=== PATIENT | female | born 1975 | race Caucasian/White ===

== ENCOUNTER 2016-12-02 20:56 | Emergency (ER) | payer MEDICARE, MEDICAID ==
[~2016-12-02 20:56] MED LIST: ADVAIR DIS1 PUFF/DO1 IH; AMBIEN DPS5 MG PO; ASCORBIC ACID500 MG PO; ATARAX-DPS25 MG PO; ATROVENT HFA12.9 G1 IH; AUGMENTIN875 MG PO; BENADRYL-DPS25 MG PO; CLARITIN DPS10 MG PO; CLOTRIMAZOLE-BE45 GM; COMBIVENT RESPIM4 GM IH; CYMBALTA60 MG PO; DESYREL DPS100 MG PO; DITROPAN XL15 MG PO; DULCOLAX-DPS10 MG PR; DULCOLAX-DPS5 MG PO; DURAGESIC DPS100 MCG TP; DURAGESIC50 MCG TD; FLONASE 0.05% D16 GM NS; HABITROL TP; HYDROCODONE 5MG/5 MG PO; IBUPROFEN200 MG PO; IMITREX DPS50 MG PO; IMODIUM DPS2 MG PO; LEVEMIR100 UNIT/1 SQ; LIPITOR DPS10 MG PO; LOVENOX DP40 MG/0.4 SQ; MAALOX DPS30 ML; MAALOX DPS30 ML PO; MESTINON DPS60 MG PO; METAMUCIL PACK3.4 GM PO; MIRALAX DPS17 GM PO; MONISTAT TP; MOVANTIK25 MG PO; MYRBETRIQ25 MG PO; NOVOLOG100 UNIT/2 SQ; PHENERGAN DPS25 MG PO; PRILOSEC40 MG PO; PRINIVIL10 MG PO; PROAIR RESPICL90 MCG IH; REGLAN-DPS10 MG PO; SENOKOT S1 TAB PO; THERA1 EACH PO; TOPIRAMATE100 MG PO; TRESIBA FL200 UNIT/1 SQ; TYLENOL EXTRA500 MG PO; ULTRAM DPS50 MG PO; VALIUM-DPS2 MG PO; ZENPEP DR 20,01 EACH PO; ZESTRIL DPS20 MG PO; ZOFRAN ODT4 MG PO; ZOFRAN4 MG PO; ZYRTEC DPS10 MG PO
--- NOTE | 2016-12-03 06:50 | ER ---
ADMIT: 12/02/2016 RM/LOC: ER [facility] MR#: [id number] [id number] [place], [place] [address] CHRISTOPHER GUZMAN [address] [place] [address] Emergency Room Report SEX: F AGE: 41 : 1975 DATE: 12/02/2016 The patient is a 41-year-old female, with triplegia from work-related accident, complicated by stroke, chronic gastroparesis, neurogenic bladder with indwelling suprapubic catheter, complains of exacerbation of gastroparesis and abdominal pain consistent with her pancreatitis. Exam remarkable for nontoxic, afebrile female, triplegia, minimal use of her left arm. WBC 16.8, CRP 2.24, lactic 1.0, potassium 3.2, lipase 51, BNP 18. UA shows 3+ leukocyte esterase, 28 wbc's, 5 rbc's, cloudy urine. Culture pending. Given Rocephin 1 g IV piggyback, home with Macrobid 100 mg b.i.d. #20, hydrocodone 5/325 mg as needed #20 plus #6 from Pyxis. Follow up with Dr. Garcia next week. Marcin Cota MD/ adi JOB #: [id number] CC: Marcin Cota MD, Attending Physician Karin Garcia, DO Resident, Family Physician Karin Garcia, DO Resident
== END 2016-12-02 23:25 | disposition home or self-care (01) ==
LOC: ER 20:56
DX: N39.0 Urinary tract infection, site not specified (principal); R10.9 Unspecified abdominal pain; I10 Essential (primary) hypertension; E78.5 Hyperlipidemia, unspecified; F17.210 Nicotine dependence, cigarettes, uncomplicated; Z86.73 Personal history of transient ischemic attack (TIA), and cerebral infarction without residual deficits; Z88.8 Allergy status to other drugs, medicaments and biological substances; Z79.4 Long term (current) use of insulin; Z79.899 Other long term (current) drug therapy

== ENCOUNTER 2017-02-11 15:05 | Observation (INO) | payer MEDICARE, MEDICAID ==
[~2017-02-11] VITALS: Ht 175.3 cm; Wt 110.0 kg
--- NOTE | 2017-02-12 16:11 | ER ---
ADMIT: 02/11/2017 RM/LOC: [address] [facility] MR#: [id number] [id number] [place], [place] [address] CHRISTOPHER GUZMAN [address] [place] [address] Emergency Room Report SEX: F AGE: 41 : 1975 DATE: 02/11/2017 ADDENDUM: ADMITTING DIAGNOSES: Insulin-dependent diabetes, nausea, vomiting, triplegia secondary to trauma, Social Service concern, and history of cerebrovascular accident. The patient lives at home essentially by herself. She has caretakers that come in maybe for an 11 hours a day. She usually gets around. Does on herself, but she has been more short of breath. She had a little chest pain, just not feeling well overall. CBC, chemistry, troponin, EKG negative. Chest x-ray is negative. Essentially with her nausea and vomiting, she is unable to keep enough down to control her insulin. I did a hemoglobin A1c, she is relatively controlled at 6.9. She also is narcotic dependent. She is running out of her pain medications, although she still has a fentanyl patch on. We gave her Dilaudid x2 while she was here, difficult to get an IV in her. At this time, I spoke to Dr. Matt, going to admit for observation, this baby more of a Social Service concern, but since she is unable to keep enough or all food and liquids down and control her diabetes and she is essentially paraplegic, then we will need to admit her. CONDITION ON DISCHARGE: Serious, but stable. Seamus Rivas MD/ modl JOB #: [id number] CC: Leia Matt MD, Attending Physician Leia Matt MD, Family Physician
--- NOTE | 2017-02-15 07:30 | HP ---
ADMIT: 02/11/2017 RM/LOC: [address] [facility] MR#: [id number] [address] [place], [place] [address] THOMAS CHRISTOPHERShanel ROBERT [address] [place] [address] History and Physical SEX: F AGE: 41 : 1975 DATE OF SERVICE: CHIEF COMPLAINT: Chest pressure and nausea and vomiting. HISTORY OF PRESENT ILLNESS: This is a 41-year-old lady, who is paraplegic from a work site accident in 2005, which caused lower extremity paralysis. She reports that in 2009 she had a stroke, but that history is not documented in any of our notes. In any case, she said that left her with right arm weakness. Therefore, she has only use of her left arm. In any case, she said that over the last 4 days, she has had cold symptoms and chest pressure from that and then last night at about 2300 hours said her chest pain got worse. She waited through the night and was able to sleep, but said throughout the day today she thought it was getting worse so she came to the ER. She was brought in by [facility]. She lives at home and has nursing help and other help to transport her to doctor's appointments, but called the squad to come to the ER. In the emergency room, she had normal troponin, normal chest x-ray, and her EKG showed sinus rhythm with no acute changes. However, she complains that she hurts and is nauseated and cannot tolerate taking her usual medications. She is admitted on observation status for further evaluation and rule out myocardial infarction. The patient's risk factors include smoking and diabetes apparently type 1. Also, she has morbid obesity, hyperlipidemia, and some family history. The patient tells me that she has atrial fibrillation that was diagnosed sometime after her accident in 2005. However in past charts, I do not find documentation of that other than it was reported by the patient. She has normal sinus rhythm on her EKG here and is normal sinus rhythm on telemetry. At the office visit she had at our clinic, it was reported that her rhythm sounded regular. She is on no anticoagulation and she tells me it was stopped 2 to 3 years ago "by the pain doctor, who didn't tell me why he stopped it." She is a poor historian. She gives me the history that she had a stroke here in [place] and went to another clinic or hospital, but says "I can't remember that now." In past medical history is ever documented by another physician at my clinic, she told that doctor that her stroke happened while she lived in [place] and it was a bleed. She has had an MRI in the past that did not show any sign of bleed or stroke, however. This is all information taken from old notes in our clinic. In any case, she is admitted for rule out myocardial infarction and for her complaint of nausea. PAST MEDICAL HISTORY: Again, complicated with multiple comorbid conditions. CVA reported by the patient, but I do not find documentation of that in past records. She also has migraines, diabetic gastroparesis, asthma, anxiety disorder, COPD, nicotine dependence, diabetes type 1, chronic constipation, hypertension, hyperlipidemia, and past seizure, which started after her trauma. She is paraplegic from trauma in 2005. She does not use her right arm and says that is because of the stroke. She has suprapubic catheter and ADMIT: 02/11/2017 RM/LOC: [address] [facility] MR#: [id number] [address] [place] [id number] CHRISTOPHER GUZMAN [address] [place] [address] History and Physical SEX: F AGE: 41 : 1975 also has a port for venous access that is in the right upper chest. She has chronic pain in neck and upper back. Consultants include state appellate clerk, sludge control attendant, and neurologist all in [place]. She sees Dr. Rodriguez in [place], who manages the catheter exchanges for her suprapubic catheterization. She previously saw Dr. Mccarty for pain, but says that she is not seeing him any longer and that she is out of her pain medicine and "I was using some old fentanyl patches I had left over." FAMILY HISTORY: Reportedly positive for diabetes and stroke in her father as well as stroke in paternal grandparents. SOCIAL HISTORY: She is a smoker, reports she smokes about a pack a day. Denies alcohol use. She lives at home in her own home and has a caregiver listed as person to notify a next of kin. She is disabled. She moved from [place] sometime after 2005. MEDICATIONS: Medication list is extensive and needs to be reviewed for doses. It does include: 1. Tresiba insulin 110 units every morning. 2. NovoLog at meals with sliding scale correction and is managed by Jesenia Dorado APRN at [facility]. REVIEW OF SYSTEMS: GENERAL: She said she feels some achiness and sinus congestion. She does not know if she has had a fever. She complains of chronic nausea. Denies current vertigo. CARDIOPULMONARY: She denies sputum production. She said she is not able to lay flat and that is chronic for her. However recently she tells me she has been waking up the last few nights feeling "like I have to gasp for breath and I am congested." She also complains of pain mainly in the right side of the chest. GASTROINTESTINAL: Positive for chronic ongoing nausea from her gastroparesis. She reports she has vomited a couple times in the last day. Now, she said she feels hungry. GENITOURINARY: She has suprapubic catheter and it is not due yet to be changed. MUSCULOSKELETAL: Positive for paraplegia and also right arm weakness. She has chronic neck and back pain as well. ENDOCRINE: Positive for diabetes. PHYSICAL EXAMINATION: GENERAL: This lady is lying in bed, propped up about 45 degrees. She can easily move and use her left arm and hand and turn her head and neck. She is alert and oriented x3. She is a poor historian, and when I ask her questions regarding some of her medicines or her past history such as history of a stroke or atrial fibrillation, she tells me "I can't remember everything." Her tongue is a little bit dry and lips are moist. LUNGS: Clear but diminished. HEART: Regular. She has suprapubic catheter with minimal redness around the ADMIT: 02/11/2017 RM/LOC: [address] [facility] MR#: [id number] [address] [facility] [address] [place], [place] [address] CHRISTOPHER GUZMAN [address] [place] [address] History and Physical SEX: F AGE: 41 : 1975 insertion site. She also has a port in the right upper chest with no erythema. LABORATORY AND X-RAY DATA: Chest x-ray done in the emergency room is normal with the cath that is visible. Laboratory included troponin less than 0.05. Electrolytes with sodium 140, potassium 3.6, chloride 110, bicarb 24, BUN is 5, creatinine 0.5, her glucose was 110, and calcium 8.8. Liver enzymes were normal. Albumin a little bit low at 3.3. White count 11.3, hemoglobin 13.4, hematocrit 39.5, and platelet count 309, and her white count differential is normal. Hemoglobin A1c is 6.9. Urinalysis shows hazy urine, specific gravity 1.015, 1+ blood, 3+ leukocytes, and no other findings. Urine culture was set up. ASSESSMENT: 1. Chronic nausea and vomiting with gastroparesis and acute worsening. 2. Mild viral upper respiratory infection with normal chest x-ray and normal saturations. 3. Asthma. 4. Chronic pain. 5. Paraplegia. 6. Nicotine dependence. 7. Diabetes type 1. 8. Chronic obstructive pulmonary disease. 9. Chronic hypertension. 10.Seizure disorder. 11.Anxiety. 12.Chronic migraines. Do serial cardiac enzymes. She will need a low air loss mattress because of her paraplegia. I will continue her usual insulin, which is documented in the chart. We will need to check with pharmacy regarding actual precise dosing on her medicines, but I will continue the majority of her medicines according to the list we currently have. She said her next suprapubic catheter change is not due yet. [facility] [place]. Regarding the atrial fibrillation report, she is in sinus rhythm now, and we will use routine pharmacologic anticoagulation while she is here. Regarding her reported stroke history, there is a note from a recent visit at [facility] to see Neurology in November of 2016. In that note, neurologist states he reviewed old MRI and sees "no abnormalities except minor ADMIT: 02/11/2017 RM/LOC: [address] [facility] MR#: [id number] [address] [address] CHRISTOPHER GUZMAN [address] [place] [address] History and Physical SEX: F AGE: 41 : 1975 small vessel disease, specifically no evidence of stroke." We will reassure her. She does not need to be concerned about atrial fibrillation at this time because she is in sinus rhythm. Finally, I have Social Work see her to discuss if there is any need for further assistance at home or if she is safe to go home. Dr. Karin Garcia is her primary physician and will follow her here in the hospital. I spent a total of 90 minutes admitting the patient and reviewing records and approximately 50% of the time was spent talking with the patient about her history and going over medicines and acute symptoms. She is aware and agrees with the plan of care. Leia Matt MD/ adi VAZQUEZ: 02/11/2017 21:36:15 JOB #: [id number] CC: Leia Matt MD, Attending Physician Leia Matt MD, Family Physician
[2017-02-15] MEDS ORDERED: TYLENOL EXTRA500 M1 PO (21:00)
[2017-02-15] MEDS ORDERED: TYLENOL DPS325 MG PO (21:01)
[2017-02-15] MEDS ORDERED: AUGMENTIN 875-1 EACH PO (21:01)
[2017-02-15] MEDS ORDERED: VITAMIN C250 MG PO (21:01)
[2017-02-15] MEDS ORDERED: LIPITOR DPS10 MG PO (21:02)
[2017-02-15] MEDS ORDERED: BACITRACIN15 G1 TP (21:02)
[2017-02-15] MEDS ORDERED: MUCINEX600 MG PO (21:03)
[2017-02-15] MEDS ORDERED: ZYRTEC DPS10 MG PO (21:03)
[2017-02-15] MEDS ORDERED: BISA-LAX5 MG PO (21:03)
[2017-02-15] MEDS ORDERED: DULCOLAX-DPS10 MG PR (21:03)
[2017-02-15] MEDS ORDERED: NOVOLOG FL100 UNIT/1 SQ ×2 (21:04)
[2017-02-15] MEDS ORDERED: DELTASONE DPS20 MG PO (21:04)
[2017-02-15] MEDS ORDERED: BENADRYL-DPS25 MG PO (21:05)
[2017-02-15] MEDS ORDERED: CYMBALTA30 MG PO (21:05)
[2017-02-15] MEDS ORDERED: VALIUM DPS PO (21:05)
[2017-02-15] MEDS ORDERED: FENTANYL1 EAC1 TD (21:06)
[2017-02-15] MEDS ORDERED: NICOTINE PATCH1 EAC2 TD (21:06)
[2017-02-15] MEDS ORDERED: ATARAX-DPS25 MG PO (21:07)
[2017-02-15] MEDS ORDERED: ZOFRAN ODT4 MG PO (21:07)
[2017-02-15] MEDS ORDERED: FLOVENT HFA10.6 GM IH (21:07)
[2017-02-15] MEDS ORDERED: NORCO 5-325 TA1 EACH PO (21:07)
[2017-02-15] MEDS ORDERED: DUONEB DPS3 ML IH (21:08)
[2017-02-15] MEDS ORDERED: TRESIBA FL200 UNIT/1 SQ (21:08)
[2017-02-15] MEDS ORDERED: MOBIC DPS7.5 MG PO (21:08)
[2017-02-15] MEDS ORDERED: REGLAN-DPS10 MG PO (21:09)
[2017-02-15] MEDS ORDERED: ZENPEP DR 10,01 EACH PO (21:09)
[2017-02-15] MEDS ORDERED: [UNRECOGNIZED DRUG - OTHER] TP (21:09)
[2017-02-15] MEDS ORDERED: ZESTRIL DPS20 MG PO (21:09)
[2017-02-15] MEDS ORDERED: THERA1 EACH PO (21:10)
[2017-02-15] MEDS ORDERED: LUBRIDERM180 ML TP (21:10)
[2017-02-15] MEDS ORDERED: MYRBETRIQ25 MG PO (21:10)
[2017-02-15] MEDS ORDERED: MOVANTIK25 MG PO (21:10)
[2017-02-15] MEDS ORDERED: MYCOSTATIN PWD15 GM TP (21:11)
[2017-02-15] MEDS ORDERED: [UNRECOGNIZED DRUG - OTHER] PR (21:11)
[2017-02-15] MEDS ORDERED: PRILOSEC DPS20 MG PO (21:11)
[2017-02-15] MEDS ORDERED: DITROPAN-DPS5 MG PO (21:12)
[2017-02-15] MEDS ORDERED: PHENERGAN DPS25 MG PO (21:12)
[2017-02-15] MEDS ORDERED: LYRICA25 MG PO (21:12)
[2017-02-15] MEDS ORDERED: BETADINE30 ML TP (21:12)
[2017-02-15] MEDS ORDERED: SENOKOT S1 TAB PO (21:13)
[2017-02-15] MEDS ORDERED: MESTINON DPS60 MG PO (21:13)
[2017-02-15] MEDS ORDERED: IMITREX DPS50 MG PO (21:14)
[2017-02-15] MEDS ORDERED: ULTRAM DPS50 MG PO (21:14)
[2017-02-15] MEDS ORDERED: TOPAMAX200 MG PO (21:14)
[2017-02-15] MEDS ORDERED: AMBIEN DPS5 MG PO (21:15)
[2017-02-15] MEDS ORDERED: DESYREL DPS100 MG PO (21:15)
--- NOTE | 2017-03-22 08:04 | DS ---
ADMIT: 02/11/2017 RM/LOC: 531 [facility] MR#: [id number] [address] [facility] [address] [place] [id number] CHRISTOPHER GUZMAN [address] [place] [address] Discharge Summary SEX: F AGE: 41 : 1975 ADMISSION DATE: 02/11/2017 DISCHARGE DATE: 02/15/2017 DISCHARGE DIAGNOSES: 1. Atypical chest pain. 2. Viral URI (upper respiratory infection). 3. Gastroparesis with acute worsening. 4. Asthma with acute exacerbation. 5. Chronic pain. 6. Type 1 diabetes mellitus. 7. Paraplegia. 8. Tobacco abuse. 9. COPD (chronic obstructive pulmonary disease). 10.Hypertension. 11.Chronic migraine. CONSULTS: None. HISTORY OF PRESENT ILLNESS: This is a 41-year-old lady with multiple medical problems who came in with a four day history of cold symptoms and chest pressure. In the ER, she had a normal troponin, normal chest x-ray, and her EKG showed sinus rhythm with no acute changes. She was also complaining of severe nausea and unable to tolerate her usual medications and was therefore admitted on observation status for further evaluation and cardiac rule out. HOSPITAL COURSE: Upon admission, cardiac enzymes and EKGs were trended over several hours and all proved to be normal. There were no signs of atrial fibrillation on her EKGs despite her verbal history of A fib in the past. For her nausea and vomiting, she was given IV Zofran and over time was able to tolerate a solid diet again without issues. For her upper respiratory infection, ADMIT: 02/11/2017 RM/LOC: 531 [facility] MR#: [id number] [address] [facility] [address] [place] [id number] CHRISTOPHER GUZMAN [address] [place] [address] Discharge Summary SEX: F AGE: 41 : 1975 she was started on Augmentin but continued to cough and wheeze and so she was given DuoNeb treatments q.i.d. and started on prednisone as well which seemed to improve her symptoms. During her stay, she brought up some sores that she has had chronically behind her bilateral ears and so she was given antibiotic ointment for this. She developed a migraine while in the hospital and was given her p.r.n. Imitrex which seemed to help. The patient continued to do well and was therefore discharged back to home on 02/15/2017. DISCHARGE INSTRUCTIONS: The patient was given the number for Dr. Avina for pain management since she has yet to find a Pain Management doctor to manage her pain medications. She is to follow up with Dr. Garcia in two to three weeks. Discharge medications: See list. Karin Garcia DO Resident / Leia Matt MD / angela JOB #: [id number] CC: eLia Matt MD, Attending Physician Leia Matt MD, Family Physician
== END 2017-02-15 15:15 | disposition home or self-care (01) ==
LOC: ER 15:05 → 5MS 17:14
PROVIDERS: ADMIT Family Medicine
DX: J06.9 Acute upper respiratory infection, unspecified (principal); G89.29 Other chronic pain; J98.2 Interstitial emphysema; K31.84 Gastroparesis; E11.43 Type 2 diabetes mellitus with diabetic autonomic (poly)neuropathy; G82.20 Paraplegia, unspecified; G43.909 Migraine, unspecified, not intractable, without status migrainosus; E78.5 Hyperlipidemia, unspecified; F17.210 Nicotine dependence, cigarettes, uncomplicated; E66.01 Morbid (severe) obesity due to excess calories; I10 Essential (primary) hypertension; F41.9 Anxiety disorder, unspecified; J45.909 Unspecified asthma, uncomplicated; Z79.4 Long term (current) use of insulin; Z79.899 Other long term (current) drug therapy